=== PATIENT | female | born 1970 | race African-American/Black ===

== ENCOUNTER 2022-03-17 11:43 | Inpatient (IN) | payer OTHER ==
[2022-03-17 12:50] VITALS: BMI 32.9
[2022-03-17] MEDS ORDERED: DICYCLOMINE HCL 10 MG CAPSULE PO PRN (14:29)
[2022-03-17] MEDS ORDERED: IBUPROFEN 400 MG TABLET (FP) PO PRN (14:29)
[2022-03-17] MEDS ORDERED: BENZOCAINE/MENTHOL (CHLORASEPTIC ) LOZENGE MM PRN (14:29)
[2022-03-17] MEDS ORDERED: MAGNESIUM HYDROX 2400MG/30ML ORAL SUSPENSION 30 ML CUP PO PRN (14:29)
[2022-03-17] MEDS ORDERED: LOPERAMIDE HCL 2 MG CAPSULE PO PRN (14:29)
[2022-03-17] MEDS ORDERED: MAG HYDROX/AL HYDROX/SIMETH 30 ML UNIT-DOSE CUP PO PRN (14:29)
[2022-03-17] MEDS ORDERED: NALOXONE HCL (KLOXXADO) 8 MG SPRAY NS PRN (14:29)
[2022-03-17] MEDS ORDERED: MAGNESIUM CITRATE 300 ML BOTTLE PO PRN (14:29)
[2022-03-17] MEDS ORDERED: BISMUTH SUBSALICYLATE 524 MG/30 ML PO PRN (14:29)
[2022-03-17] MEDS ORDERED: IBUPROFEN 600 MG TABLET (FP) PO PRN (14:29)
[2022-03-17] MEDS ORDERED: NICOTINE POLACRILEX 2 MG GUM BUC PRN (14:29)
[2022-03-17] MEDS ORDERED: ONDANSETRON *ODT* 4 MG TABLET SL PRN (14:29)
[2022-03-17] MEDS ORDERED: ACETAMINOPHEN 325 MG TABLET (FP) PO PRN ×2 (14:29)
[2022-03-17] MEDS ORDERED: cloNIDine HCL 0.1 MG TABLET PO PRN (14:29)
[2022-03-17] MEDS ORDERED: diazePAM 5 MG TABLET PO PRN (14:35)
[2022-03-17] MEDS ORDERED: ALBUTEROL SO4 HFA INHALER IH PRN (14:39)
[2022-03-17] MEDS: hydrOXYzine PAMOATE 25 MG CAPSULE (FP) PO SCH ×2 (18:35→23:09)
[2022-03-17] MEDS: amLODIPine BESYLATE 5 MG TABLET (FP) PO SCH (18:36)
[2022-03-17] MEDS ORDERED: methaDONE HCL 10 MG TABLET (FOR DETOX USE ONLY) PO ONE (22:00)
[2022-03-17] MEDS: MELATONIN 5 MG TABLETS PO SCH (23:08)
[2022-03-17] MEDS: GABAPENTIN 400 MG CAPSULE PO SCH (23:08)
[2022-03-17] MEDS: THIAMINE HCL 100 MG TABLET (FP) PO SCH (23:08)
[2022-03-18] MEDS: hydrOXYzine PAMOATE 25 MG CAPSULE (FP) PO SCH ×5 (07:57→22:54)
[2022-03-18] MEDS: PRENATAL VITAMINS W/ FOLIC ACID TABLET (FP) PO SCH (10:31)
[2022-03-18] MEDS: GABAPENTIN 400 MG CAPSULE PO SCH ×2 (10:31→22:54)
[2022-03-18] MEDS: amLODIPine BESYLATE 5 MG TABLET (FP) PO SCH (10:34)
[2022-03-18] MEDS: NICOTINE 10 MG CARTRIDGE (INHALER) IH PRN (10:55)
[2022-03-18] MEDS: busPIRone HCL 10 MG TABLET (FP) PO SCH (13:06)
[2022-03-18 15:39] LABS: CALCIUM 9.6 mg/dL (8.5-10.1)
[2022-03-18 15:40] LABS: ALBUMIN 3.9 g/dl (3.4-5.0); BLOOD UREA NITROGEN 10.3 mg/dL (7-18)
[2022-03-18 15:43] LABS: CREATININE 0.7 mg/dL (0.55-1.3)
[2022-03-18 15:44] LABS: TOT PROT 7.5 g/dl (6.4-8.2)
[2022-03-18 15:45] LABS: BILIRUBIN,TOTAL 0.3 mg/dL (0.2-1); HEMATOCRIT 42.7 % (32.4-45.2); HEMOGLOBIN 14.2 GM/dL (10.7-15.3); MCH 30.2 pg (25.7-33.7); MCHC 33.2 g/dl (32.0-36.0); PLATELET COUNT 279 10^3/uL (134-434); RBC 4.69 M/mm3 (3.60-5.2); RDW 13.8 % (11.6-15.6); WHITE BLOOD COUNT 8.8 K/mm3 (4.0-10.0)
[2022-03-18] MEDS: MELATONIN 5 MG TABLETS PO SCH (22:54)
[2022-03-18] MEDS: QUEtiapine FUMARATE 100 MG TABLET (FP) PO SCH (22:54)
[2022-03-18] MEDS: THIAMINE HCL 100 MG TABLET (FP) PO SCH (22:54)
[2022-03-18] MEDS: METHOCARBAMOL 500 MG TABLET PO PRN (22:55)
[2022-03-19] MEDS: hydrOXYzine PAMOATE 25 MG CAPSULE (FP) PO SCH ×5 (06:18→22:50)
[2022-03-19] MEDS ORDERED: methaDONE HCL 10 MG TABLET (FOR DETOX USE ONLY) PO ONE (10:00)
[2022-03-19] MEDS: GABAPENTIN 400 MG CAPSULE PO SCH ×2 (10:05→22:50)
[2022-03-19] MEDS: busPIRone HCL 10 MG TABLET (FP) PO SCH (10:05)
[2022-03-19] MEDS: METHOCARBAMOL 500 MG TABLET PO PRN (10:05)
[2022-03-19] MEDS: amLODIPine BESYLATE 5 MG TABLET (FP) PO SCH (10:05)
[2022-03-19] MEDS: PRENATAL VITAMINS W/ FOLIC ACID TABLET (FP) PO SCH (10:05)
[2022-03-19] MEDS: NICOTINE 10 MG CARTRIDGE (INHALER) IH PRN (10:08)
[2022-03-19] MEDS: THIAMINE HCL 100 MG TABLET (FP) PO SCH (22:50)
[2022-03-19] MEDS: MELATONIN 5 MG TABLETS PO SCH (22:51)
[2022-03-19] MEDS: QUEtiapine FUMARATE 100 MG TABLET (FP) PO SCH (22:51)
[2022-03-20] MEDS: hydrOXYzine PAMOATE 25 MG CAPSULE (FP) PO SCH ×5 (07:05→22:42)
[2022-03-20] MEDS: GABAPENTIN 400 MG CAPSULE PO SCH ×2 (10:11→22:41)
[2022-03-20] MEDS: amLODIPine BESYLATE 5 MG TABLET (FP) PO SCH (10:11)
[2022-03-20] MEDS: busPIRone HCL 10 MG TABLET (FP) PO SCH (10:11)
[2022-03-20] MEDS: METHOCARBAMOL 500 MG TABLET PO PRN ×2 (10:11→22:41)
[2022-03-20] MEDS: PRENATAL VITAMINS W/ FOLIC ACID TABLET (FP) PO SCH (10:12)
[2022-03-20] MEDS: NICOTINE 10 MG CARTRIDGE (INHALER) IH PRN (10:18)
[2022-03-20 22:04] VITALS: RESP 18
[2022-03-20] MEDS: MELATONIN 5 MG TABLETS PO SCH (22:41)
[2022-03-20] MEDS: QUEtiapine FUMARATE 100 MG TABLET (FP) PO SCH (22:42)
[2022-03-20] MEDS: THIAMINE HCL 100 MG TABLET (FP) PO SCH (22:42)
[2022-03-21] MEDS: hydrOXYzine PAMOATE 25 MG CAPSULE (FP) PO SCH ×2 (06:57→10:05)
[2022-03-21 09:33] VITALS: BP 121/76; PULSE 85; TEMP 97.5
[2022-03-21] MEDS ORDERED: methaDONE HCL 10 MG TABLET (FOR DETOX USE ONLY) PO ONE (10:00)
[2022-03-21] MEDS: amLODIPine BESYLATE 5 MG TABLET (FP) PO SCH (10:05)
[2022-03-21] MEDS: PRENATAL VITAMINS W/ FOLIC ACID TABLET (FP) PO SCH (10:05)
[2022-03-21] MEDS: busPIRone HCL 10 MG TABLET (FP) PO SCH (10:05)
[2022-03-21] MEDS: GABAPENTIN 400 MG CAPSULE PO SCH (10:05)
== END 2022-03-21 11:15 | disposition home or self-care (01) | DRG 773 ==
LOC: YASAS 11:43 → Y3N 15:05
PROVIDERS: ADMIT Allergy & Immunology; ATTEND Surgery
PROC: HZ2ZZZZ Detoxification Services for Substance Abuse Treatment (ICD-10-PCS; principal; 2022-03-17)
DX: F11.23 Opioid dependence with withdrawal (principal); F10.230 Alcohol dependence with withdrawal, uncomplicated; F14.20 Cocaine dependence, uncomplicated; F12.20 Cannabis dependence, uncomplicated; F19.24 Other psychoactive substance dependence with psychoactive substance-induced mood disorder; F32.A Depression, unspecified; F41.9 Anxiety disorder, unspecified; I10 Essential (primary) hypertension; J45.909 Unspecified asthma, uncomplicated; G47.30 Sleep apnea, unspecified; G47.00 Insomnia, unspecified; Z28.310 Unvaccinated for COVID-19; Z56.0 Unemployment, unspecified
CPT/HCPCS: 36415; 80053; 81025; 83036; 85027; 86780; 93005; 93010